=== PATIENT | male | born 2000 ===

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

== ENCOUNTER 2022-12-11 18:12 | Emergency (ER) | payer OTHER ==
[~2022-12-11] VITALS: Ht 165.1 cm; Wt 69.4 kg
[2022-12-14] MEDS ORDERED: PENVK500 PO (17:34)
== END 2022-12-11 21:30 | disposition home or self-care (01) ==
LOC: ER 18:12
DX: J02.9 Acute pharyngitis, unspecified (principal)
CPT/HCPCS: 87081; 87147; 87430; 99283